=== PATIENT | female | born 1955 | race Caucasian/White ===

== ENCOUNTER 2021-06-22 04:54 | Inpatient (IN) ==
[2021-06-22] MEDS ORDERED: Morphine 4 MG/ML VIAL (1 ml) IV ONE (05:08)
[2021-06-22] MEDS: Morphine 4 MG/ML VIAL (1 ml) IV PRN ×2 (06:13→07:39)
[2021-06-22 07:22] LABS: ABS Basophils 0.1 10^3/ul (0-0.2); ABS Lymphocytes 1.5 10^3/ul (1.0-4.8); ABS Monocytes 0.5 10^3/ul (0-0.8); ABS Neutrophils 10.7 10^3/ul (1.5-7.7); Eosinophil % 0.1 %; Hematocrit 35 % (35-47); Hemoglobin 11.9 g/dL (12.0-16.0); Lymphocyte % 11.7 %; Mean Corpuscular HGB Conc 34 g/dL (31-36); Mean Corpuscular Hemoglobin 33 pg (27-31); Mean Corpuscular Volume 95 fL (80-97); Mean Platelet Volume 6.5 fL (7.4-10.4); Platelet Count 331 10^3/uL (150-450); Red Blood Count 3.66 10^6 /uL (3.70-4.87); Red Cell Distribution Width 13 % (10-15); White Blood Count 12.8 10^3/uL (3.5-10.8)
[2021-06-22 07:38] LABS: Albumin 4.3 g/dL (3.2-5.2); Albumin/Globulin Ratio 1.3 (1-3); Calcium 8.9 mg/dL (8.6-10.3); EGFR Non-African American 85.9 (>60); Globulin 3.2 g/dL (2-4); Potassium 4.2 mmol/L (3.5-5.0); Total Bilirubin 0.4 mg/dL (0.2-1.0); Total Protein 7.5 g/dL (6.4-8.9)
[2021-06-22] MEDS ORDERED: Morphine 4 MG/ML VIAL (1 ml) IV PRN (08:24)
[2021-06-22] MEDS ORDERED: NS 0.9% 1000 ml BAG 1,000 ML IV SCH (08:30)
[2021-06-22] MEDS: Ondansetron 4 mg VIAL 2 MG/ML 2 ml VIAL IV PRN ×2 (09:13→13:02)
[2021-06-22] MEDS ORDERED: Albuterol HFA INHALER 8 gm MDI INH PRN (15:00)
[2021-06-22] MEDS ORDERED: HYDROmorphone 0.5 MG/0.5 ML SYRINGE IV PRN (17:03)
[2021-06-23] MEDS: Ondansetron 4 mg VIAL 2 MG/ML 2 ml VIAL IV PRN ×3 (02:05→14:50)
[2021-06-23] MEDS: Lactated Ringers 1000 ml BAG 1,000 ML IV SCH ×2 (05:56→23:27)
[2021-06-23] MEDS ORDERED: Buffered Lidocaine 1% SYRIN 1 ml INTRADERM ONE (06:00)
[2021-06-23 06:12] LABS: ABS Basophils 0.1 10^3/ul (0-0.2); ABS Eosinophils 0.1 10^3/ul (0-0.6); ABS Lymphocytes 1.8 10^3/ul (1.0-4.8); ABS Monocytes 0.6 10^3/ul (0-0.8); ABS Neutrophils 3.7 10^3/ul (1.5-7.7); Eosinophil % 1.2 %; Hematocrit 31 % (35-47); Hemoglobin 10.3 g/dL (12.0-16.0); Lymphocyte % 29.3 %; Mean Corpuscular HGB Conc 34 g/dL (31-36); Mean Corpuscular Hemoglobin 32 pg (27-31); Mean Corpuscular Volume 96 fL (80-97); Mean Platelet Volume 6.5 fL (7.4-10.4); Nucleated Red Blood Cells % 0.1; Platelet Count 287 10^3/uL (150-450); Red Blood Count 3.19 10^6 /uL (3.70-4.87); Red Cell Distribution Width 14 % (10-15); White Blood Count 6.3 10^3/uL (3.5-10.8)
[2021-06-23 06:23] LABS: Activated Partial Thrombo Time 27.5 seconds (26.0-38.0)
[2021-06-23 06:37] LABS: Calcium 8.9 mg/dL (8.6-10.3); EGFR African American 102.3 (>60); EGFR Non-African American 84.5 (>60); Potassium 3.6 mmol/L (3.5-5.0)
[2021-06-23] MEDS ORDERED: Lidocaine 1% MPF 5 ML VIAL ONE (09:27)
[2021-06-23] MEDS ORDERED: Clindamycin 900 MG/D5W BAG 900 MG/50 ML BAG IVPB ONE (09:43)
[2021-06-23] MEDS ORDERED: Morphine 4 MG/ML VIAL (1 ml) ONE ×2 (10:18→14:47)
[2021-06-23] MEDS ORDERED: Ondansetron 4 mg VIAL 2 MG/ML 2 ml VIAL ONE ×2 (10:46→14:45)
[2021-06-23] MEDS ORDERED: fentaNYL 100 mcg/2 ml 50 MCG/ML VIAL ONE ×4 (10:50→21:05)
[2021-06-23] MEDS ORDERED: Midazolam 2 mg/2 ml VIAL 1 mg/ml 2 ml VIAL (2 mg) ONE ×2 (10:51→15:48)
[2021-06-23] MEDS ORDERED: Dexamethasone IV 4 MG/ML VIAL 1 ml VIAL ONE ×3 (10:51→16:48)
[2021-06-23] MEDS ORDERED: Bupivacaine 0.5% SDV PF 30ML VIAL ONE ×2 (10:51→20:24)
[2021-06-23] MEDS ORDERED: Propofol 10 MG/ML 20 ML BTL ONE ×2 (12:06→15:48)
[2021-06-23] MEDS ORDERED: Morphine 10 MG/ML VIAL (1 ml) ONE (12:20)
[2021-06-23] MEDS ORDERED: Lidocaine 1% w EPI 1:200,000 SDV 30 ML VIAL ONE (16:11)
[2021-06-23] MEDS ORDERED: Lidocaine 2% PF 5 ML VIAL ONE (16:14)
[2021-06-23] MEDS ORDERED: HYDROmorphone 1 MG/1 ML SYRINGE ONE ×2 (16:24→16:27)
[2021-06-23] MEDS ORDERED: Acetaminophen IV 1 GM/100ML 100 ML IV ONE (16:46)
[2021-06-23] MEDS ORDERED: EPHEDrine (Pressors) 50 MG/ML VIAL ONE (17:35)
[2021-06-23] MEDS ORDERED: Bupivacaine 0.5% 50 ML MDV VIAL ONE (20:28)
[2021-06-23] MEDS ORDERED: Albuterol/Ipratropium NEB.SOL (2.5/0.5 MG) 3 ML NEB.SOLN INH ONE (20:49)
[2021-06-23] MEDS ORDERED: Naloxone 0.4 mg VIAL 0.4 mg/ml 1 ml VIAL IV PRN (20:50)
[2021-06-23] MEDS ORDERED: DiMENhydriNATE IV 50 mg/ml 1 ml VIAL IV PUSH PRN (20:50)
[2021-06-23] MEDS ORDERED: Albuterol/Ipratropium NEB.SOL (2.5/0.5 MG) 3 ML NEB.SOLN ONE (20:52)
[2021-06-23] MEDS: fentaNYL 100 mcg/2 ml 50 MCG/ML VIAL IV PRN ×4 (21:06→21:43)
[2021-06-23] MEDS ORDERED: DiMENhydriNATE IV 50 mg/ml 1 ml VIAL ONE (21:18)
[2021-06-24] MEDS: Ondansetron 4 mg VIAL 2 MG/ML 2 ml VIAL IV PRN ×2 (00:24→04:47)
[2021-06-24] MEDS: ceFAZolin 1 GM X 3 DOSES POST-OP Q8H (AddVan) IVPB SCH ×3 (00:31→09:50)
[2021-06-24] MEDS: Enoxaparin 40 MG/0.4 ML SYR SUBCUT SCH (08:28)
[2021-06-24] MEDS: Lactated Ringers 1000 ml BAG 1,000 ML IV SCH (08:33)
[2021-06-24 08:58] LABS: ABS Lymphocytes 0.8 10^3/ul (1.0-4.8); ABS Monocytes 0.6 10^3/ul (0-0.8); ABS Neutrophils 5.9 10^3/ul (1.5-7.7); Hematocrit 22 % (35-47); Hemoglobin 7.3 g/dL (12.0-16.0); Lymphocyte % 10.9 %; Mean Corpuscular HGB Conc 34 g/dL (31-36); Mean Corpuscular Hemoglobin 32 pg (27-31); Mean Corpuscular Volume 95 fL (80-97); Mean Platelet Volume 6.5 fL (7.4-10.4); Platelet Count 208 10^3/uL (150-450); Red Blood Count 2.27 10^6 /uL (3.70-4.87); Red Cell Distribution Width 14 % (10-15); White Blood Count 7.3 10^3/uL (3.5-10.8)
[2021-06-24 09:13] LABS: Calcium 8.5 mg/dL (8.6-10.3); EGFR African American 115.5 (>60); EGFR Non-African American 95.4 (>60); Potassium 4.1 mmol/L (3.5-5.0)
[2021-06-24] MEDS ORDERED: diPHENhydraMINE 25 mg TAB PO PRN (09:20)
[2021-06-24] MEDS ORDERED: oxyCODONE/Acetamin 5/325 mg TAB PO PRN (09:25)
[2021-06-24] MEDS ORDERED: diPHENhydraMINE IV 50 MG/ML 1 ml VIAL (BENADRYL) IV PRN (09:43)
[2021-06-24] MEDS ORDERED: Polyethylene Glycol 3350 17 GM PACKET PO PRN (09:44)
[2021-06-24] MEDS ORDERED: Senna TAB 8.6 mg TAB PO PRN (09:44)
[2021-06-24] MEDS ORDERED: Magnesium Hydroxide LIQ 30 ML UDC PO PRN (09:44)
[2021-06-24] MEDS: Morphine ER 15 mg TAB ** extended release PO SCH ×2 (10:58→21:57)
[2021-06-24] MEDS: Clindamycin 600 MG/D5W BAG 600 MG/50 ML BAG IV SCH ×2 (11:25→20:53)
[2021-06-24] MEDS: Magnesium Hydroxide LIQ 30 ML UDC PO SCH (20:50)
[2021-06-25] MEDS: Clindamycin 600 MG/D5W BAG 600 MG/50 ML BAG IV SCH (03:08)
[2021-06-25 06:47] LABS: Hematocrit 23 % (35-47); Hemoglobin 7.6 g/dL (12.0-16.0)
[2021-06-25] MEDS: Ondansetron 4 mg VIAL 2 MG/ML 2 ml VIAL IV PRN (07:05)
[2021-06-25 07:35] VITALS: BP 104/51
[2021-06-25] MEDS: Magnesium Hydroxide LIQ 30 ML UDC PO SCH (09:06)
[2021-06-25] MEDS: Enoxaparin 40 MG/0.4 ML SYR SUBCUT SCH (09:06)
[2021-06-25] MEDS: Morphine ER 15 mg TAB ** extended release PO SCH (09:07)
== END 2021-06-25 12:10 | disposition home or self-care (01) | DRG 309 ==
LOC: ED 04:54 → SSU 10:11 → SUATTDRO 10:13 → SSU 10:13
PROVIDERS: ADMIT Hospitalist; ATTEND Internal Medicine